=== PATIENT | male | born 1965 | race Caucasian/White ===

== ENCOUNTER 2016-10-26 09:05 | Outpatient (CLI) | payer OTHER ==
[2016-10-26 10:01] LABS: eGFR (African) > 60; eGFR (Non-African) > 60
== END 2016-10-26 09:06 ==
LOC: LAB 09:05
PROVIDERS: ATTEND Family Medicine
DX: I10 Essential (primary) hypertension (principal)
CPT/HCPCS: 36415; 80053; 80061